=== PATIENT | male | born 1945 | race Caucasian/White ===

== ENCOUNTER 2018-06-26 08:59 | Inpatient (IN) ==
[2018-06-26] MEDS ORDERED: Heparin Drip 25,000 UNIT/250 ML BAG IV.CONT PRN (09:09)
--- NOTE | 2018-06-26 09:18 | ED ---
HPI General Chief Complaint: STEMI Alert Stated Complaint: chest pain Time Seen by Provider: 06/26/18 09:08 Source: patient Mode of arrival: ambulatory Limitations: no limitations History of Present Illness HPI narrative: Patient is a 72-year-old male with history of coronary artery disease, CABG, hypertension hyperlipidemia, he is a patient of Dr. Russell Mendoza, presents the emergency room with complaint of chest pain. Patient reports that 5 minutes prior to arrival to the emergency room, he began to have numbness to his elbows as well as his hands, reports that he has a light pain/ pressure to his chest. Patient reports that he does feel short of breath the symptoms with no diaphoresis or nausea or vomiting. Patient reports that his symptoms feel similar to when he was diagnosed with a heart attack in the past. Patient reports concerns that "I am having a heart attack." Patient reports that he last saw Dr. Mendoza 2 months ago in the office, reports that everything was fine at that time. MD complaint: Reports chest pain STEMI Alert: Yes Onset (ago): minute(s) Time: 09:00 Duration: constant Onset: during rest Pain location: Reports substernal Severity: similar to previous episodes Severity scale (1-10): 5 Quality: Reports aching Pain radiation: Reports RUE and LUE Relieving factors: nothing Exacerbating factors: nothing Context: Reports other Associated symptoms: Reports dyspnea Treatments prior to arrival chest pain: Reports aspirin Related Data Home Medications Medication Instructions Recorded Confirmed aspirin 81 mg PO DAILY 06/26/18 06/26/18 carvedilol [Coreg] 3.125 mg PO BID 06/26/18 06/26/18 prasugrel 10 mg PO DAILY 06/26/18 06/26/18 Allergies Allergy/AdvReac Type Severity Reaction Status Date / Time iodine Allergy Unknown Rash Verified 06/26/18 09:18 potassium iodide Allergy Unknown Rash Verified 06/26/18 09:18 povidone-iodine Allergy Unknown Rash Verified 06/26/18 09:18 sodium iodide Allergy Unknown Rash Verified 06/26/18 09:18 sodium iodide Allergy Unknown Rash Verified 06/26/18 09:18 Review of Systems ROS: all other systems reviewed are negative PMFSH History History Provided By: Patient Social History Social History Substance History: No History of Abuse Second Hand Smoke Exposure: Yes Smoking Status: Smoker, status unknown Tobacco Type: Cigarettes and Cigars How Often Do You Have a Drink Containing Alcohol: Never Recent Travel in [facility] within the Last 8 Weeks: No Recent Out of Country Travel within the Last 8 Weeks: No Exam Narrative Exam Narrative: GENERAL: moderate distress SKIN: Focused skin assessment warm/dry. HEAD: Atraumatic. Normocephalic. EYES: Pupils equal and round. No scleral icterus. No injection or drainage. ENT: No nasal bleeding or discharge. Mucous membranes pink and moist. NECK: Trachea midline. No JVD. CARDIOVASCULAR: Regular rate and rhythm. No murmur appreciated. RESPIRATORY: No accessory muscle use. Clear to auscultation. Breath sounds equal bilaterally. GASTROINTESTINAL: Abdomen soft, non-tender, nondistended. Hepatic and splenic margins not palpable. MUSCULOSKELETAL: No obvious deformities. No clubbing. No cyanosis. No edema. NEUROLOGICAL: Awake and alert. No obvious cranial nerve deficits. Motor grossly within normal limits. Normal speech. PSYCHIATRIC: Appropriate mood and affect; insight and judgment normal. Course Initial Documented Vital Signs Pulse Rate 83 06/26/18 09:10 Pulse Oximetry 95 06/26/18 09:10 Last Documented Vital Signs Temperature 98.1 F 06/26/18 09:14 Pulse Rate 74 06/26/18 09:20 Respiratory Rate 16 06/26/18 09:20 Blood Pressure 148/88 H 06/26/18 09:20 Pulse Oximetry 95 06/26/18 09:20 Medical Decision Making MDM Narrative Medical decision making narrative: During the course of the patients emergency department visit, the patients history, examination, and differential diagnosis were reviewed with the patient. The patient was placed on a monitoring engineer with oximetry and frequent blood pressure monitoring. The patient 2 large bore IV access's placed and blood work sent for analysis. The patient was initially provided 2 baby asa as he did take a baby asa prior to coming to the ER. He was started on a heparin drip. morphine given for pain relief A STEMI alert was called overhead - I did talk to patient's mop machine operator - Dr. Mendoza - accepts pt to [facility] for cardiac catherization. EMS are at bedside waiting to transport patient. Patient consents to treatment Medical Screen Exam Complete: Yes Emergency Medical Condition: Yes Differential Diagnosis Differential Diagnosis: STEMI Medical Records Medical records reviewed: Yes I reviewed the patient's medical records. Lab Data Result diagrams: 06/26/18 09:10 06/26/18 09:10 Lab Results 06/26/18 06/26/18 06/26/18 Range/Units 09:10 09:10 09:10 CBC w Diff Auto diff final WBC 9.6 (4.0-11.0) th/mm3 RBC 5.47 (4.50-5.90) mil/mm3 Hgb 15.6 (13.0-17.0) gm/dL POC Hgb (Calc) Hct 47.9 (39.0-51.0) % POC Hct MCV 87.6 (80.0-100.0) fL MCH 28.6 (27.0-34.0) pg MCHC 32.6 (32.0-36.0) % RDW 13.8 (11.6-17.2) % Plt Count 299 (150-450) th/mm3 MPV 8.1 (7.0-11.0) fL Neut % (Auto) 63.9 (16.0-70.0) % Lymph % (Auto) 24.7 (9.0-44.0) % Sargent % (Auto) 8.3 H (0.0-8.0) % Eos % (Auto) 1.4 (0.0-4.0) % Baso % (Auto) 1.7 (0.0-2.0) % Neut # (Auto) 6.1 (1.8-7.7) th/mm3 Lymph # (Auto) 2.4 (1.0-4.8) th/mm3 Sargent # (Auto) 0.8 (0.0-0.9) th/mm3 Eos # (Auto) 0.1 (0.0-0.4) th/mm3 Baso # (Auto) 0.2 (0.0-0.2) th/mm3 WBC Differential . Differential Comment . PT 10.2 (9.8-11.6) sec INR 1.0 Ratio APTT 27.8 (23.4-31.7) sec POC Sodium (137-144) mmol/L Sodium (136-145) meq/L POC Potassium (3.6-5.0) mmol/L Potassium (3.5-5.1) meq/L POC Chloride (102-111) mmol/L Chloride (98-107) meq/L Carbon Dioxide (21.0-32.0) meq/L Anion Gap (5-15) meq/L POC BUN (5-21) mg/dL BUN (7-18) mg/dL Creatinine (0.60-1.30) mg/dL POC Creatinine (0.6-1.3) mg/dL Estimated GFR (>89) mL/min POC Glucose (68-110) mg/dL Random Glucose (74-106) mg/dL Calcium (8.5-10.1) mg/dL Total Bilirubin (0.2-1.0) mg/dL AST (15-37) U/L ALT (12-78) U/L Alkaline Phosphatase (45-117) U/L Total Creatine Kinase (39-308) U/L Troponin I (0.02-0.05) ng/mL B-Natriuretic Peptide 58 (0-100) pg/mL Total Protein (6.4-8.2) g/dL Albumin (3.4-5.0) g/dL 06/26/18 Range/Units 09:10 CBC w Diff WBC (4.0-11.0) th/mm3 RBC (4.50-5.90) mil/mm3 Hgb (13.0-17.0) gm/dL POC Hgb (Calc) Not Reportable Hct (39.0-51.0) % POC Hct Not Reportable MCV (80.0-100.0) fL MCH (27.0-34.0) pg MCHC (32.0-36.0) % RDW (11.6-17.2) % Plt Count (150-450) th/mm3 MPV (7.0-11.0) fL Neut % (Auto) (16.0-70.0) % Lymph % (Auto) (9.0-44.0) % Sargent % (Auto) (0.0-8.0) % Eos % (Auto) (0.0-4.0) % Baso % (Auto) (0.0-2.0) % Neut # (Auto) (1.8-7.7) th/mm3 Lymph # (Auto) (1.0-4.8) th/mm3 Sargent # (Auto) (0.0-0.9) th/mm3 Eos # (Auto) (0.0-0.4) th/mm3 Baso # (Auto) (0.0-0.2) th/mm3 WBC Differential Differential Comment PT (9.8-11.6) sec INR Ratio APTT (23.4-31.7) sec POC Sodium 139 (137-144) mmol/L Sodium 141 (136-145) meq/L POC Potassium 4.2 (3.6-5.0) mmol/L Potassium 4.2 (3.5-5.1) meq/L POC Chloride 105 (102-111) mmol/L Chloride 108 H (98-107) meq/L Carbon Dioxide 20.9 L (21.0-32.0) meq/L Anion Gap 12 (5-15) meq/L POC BUN 16 (5-21) mg/dL BUN 16 (7-18) mg/dL Creatinine 1.20 (0.60-1.30) mg/dL POC Creatinine 1.1 (0.6-1.3) mg/dL Estimated GFR 60 L (>89) mL/min POC Glucose 144 H (68-110) mg/dL Random Glucose 147 H (74-106) mg/dL Calcium 8.5 (8.5-10.1) mg/dL Total Bilirubin 0.4 (0.2-1.0) mg/dL AST 18 (15-37) U/L ALT 23 (12-78) U/L Alkaline Phosphatase 107 (45-117) U/L Total Creatine Kinase 71 (39-308) U/L Troponin I Less than 0.02 L (0.02-0.05) ng/mL B-Natriuretic Peptide (0-100) pg/mL Total Protein 7.3 (6.4-8.2) g/dL Albumin 3.1 L (3.4-5.0) g/dL Imaging Data Radiologist's impression: Chest X-Ray 06/26/18 09:10 CONCLUSION: No acute cardiopulmonary disease. ECG Data EKG Prior to Arrival: No Attestation: I personally reviewed and interpreted this ECG as follows: Prior ECG tracings: available for review Interpretation: EKG at 0902: NSR at 74bpm, qt/qtc: 368/396, patient with st elevation II, III, aVF, v3-v6st seg depression in reciprical leads Discharge Plan Discharge Disposition Patient Disposition: 02 Transfer To [facility] [place] Discharge Condition Condition: Critical Discharge Details Diagnosis: ST elevation myocardial infarction (STEMI) Physicians Team ED Provider: Teresa Nava Primary Care Provider: UNKNOWN, Attending Provider: Christi Mendoza Other Providers: Earlene Torres Status ED Status: Discharged Discharge Information Discharge Date/Time: 06/26/18 09:20
[2018-06-26] MEDS ORDERED: Morphine Inj 4 MG/ML Vial IV.PUSH ONE (09:23)
--- NOTE | 2018-06-26 09:28 | XR ---
EXAM DATE: 06/26/2018 9:24 AM EST AGE/SEX: 72 years / Male INDICATIONS: Chest pain. CLINICAL DATA: This is the patient's initial encounter. Patient reports that signs and symptoms have been present for 1 day and indicates a pain score of 5/10. MEDICAL/SURGICAL HISTORY: Hypertension. CABG. Coronary artery stent. COMPARISON: [facility] [place], CHEST SINGLE AP, 10/30/2014. . FINDINGS: A single AP view of the chest demonstrates the lungs to be symmetrically aerated without evidence of mass, infiltrate or effusion. Status post CABG. The cardiomediastinal contours are unremarkable. Oss eous structures are intact. CONCLUSION: No acute cardiopulmonary disease. Electronically signed by: Tim Iglesias MD 06/26/2018 9:27 AM EST
[2018-06-26 09:30] LABS: Baso # (Auto) 0.2 th/mm3 (0.0-0.2); Baso % (Auto) 1.7 % (0.0-2.0); Eos # (Auto) 0.1 th/mm3 (0.0-0.4); Eos % (Auto) 1.4 % (0.0-4.0); Hematocrit 47.9 % (39.0-51.0); Hemoglobin 15.6 gm/dL (13.0-17.0); Lymph # (Auto) 2.4 th/mm3 (1.0-4.8); Lymph % (Auto) 24.7 % (9.0-44.0); Mean Corpuscular HGB Conc 32.6 % (32.0-36.0); Mean Corpuscular Hemoglobin 28.6 pg (27.0-34.0); Mean Corpuscular Volume 87.6 fL (80.0-100.0); Mean Platelet Volume 8.1 fL (7.0-11.0); Mono # (Auto) 0.8 th/mm3 (0.0-0.9); Mono % (Auto) 8.3 % (0.0-8.0); Neut # (Auto) 6.1 th/mm3 (1.8-7.7); Neut % (Auto) 63.9 % (16.0-70.0); Platelet Count 299 th/mm3 (150-450); Red Blood Count 5.47 mil/mm3 (4.50-5.90); Red Cell Distribution Width 13.8 % (11.6-17.2); White Blood Count 9.6 th/mm3 (4.0-11.0)
[2018-06-26 09:43] LABS: Activated Partial Thrombo Time 27.8 sec (23.4-31.7); Prothrombin Time 10.2 sec (9.8-11.6)
[2018-06-26 09:49] LABS: Calcium 8.5 mg/dL (8.5-10.1)
[2018-06-26 09:50] LABS: Albumin 3.1 g/dL (3.4-5.0); Blood Urea Nitrogen 16 mg/dL (7-18); Carbon Dioxide 20.9 meq/L (21.0-32.0); Glucose,Random 147 mg/dL (74-106)
[2018-06-26 09:53] LABS: Alanine Aminotransferase 23 U/L (12-78); Aspartate Aminotransferase 18 U/L (15-37); Glomerular Filtration Rate 60 mL/min (>89)
[2018-06-26 09:55] LABS: Anion Gap 12 meq/L (5-15); Chloride 108 meq/L (98-107); Potassium 4.2 meq/L (3.5-5.1); Sodium 141 meq/L (136-145); Total Protein 7.3 g/dL (6.4-8.2)
[2018-06-26 09:56] LABS: Alkaline Phosphatase 107 U/L (45-117)
[2018-06-26] MEDS ORDERED: Hydrocortisone Sod Succinate 100 MG Vial ONE (10:02)
[2018-06-26 10:03] LABS: Creatine Kinase 71 U/L (39-308)
[2018-06-26] MEDS ORDERED: fentaNYL Citrate Inj 100 MCG/2 ML Ampul ONE (10:03)
[2018-06-26] MEDS ORDERED: Heparin 10,000 UNITS/10 ML Vial (for IV use) ONE (10:31)
[2018-06-26] MEDS ORDERED: Tirofiban Inj 12,500 MCG/250 ML PLAST..BAG ONE (10:49)
[2018-06-26] MEDS: Tirofiban Inj 12,500 MCG/250 ML PLAST..BAG IV.CONT SCH ×2 (10:59→22:51)
[2018-06-26] MEDS ORDERED: TIROFIBAN BOLUS IV.SIG ONE (11:09)
[2018-06-26] MEDS ORDERED: Misc Info for Pharmacy OTHER STA (11:09)
[2018-06-26] MEDS ORDERED: Famotidine PF Inj 20 MG/2 ML Vial ONE (11:13)
--- NOTE | 2018-06-26 11:13 | CATHPROC ---
[facility] HIS Report Study Information Study Number Admission Scheduled Start Study Start [id number] Jun 26 2018 8:59AM 06/26/2018 Jun 26 2018 9:34AM [place] Service Cardiac Pacer/ICD Admit Source Facility Department Transfer in from another acute care facility [facility] - Collision Repairer Physician and Clinical Staff Initial Russell Green Traffic Analyst Joseph Sawyer,WILLIAN Traffic Analyst Kash Carrero,WILLIAN Recorder Kathy Toussaint,RT(R) (BS) Scrub Jeanette Acevedo ,RT(R) Procedures Performed Procedure Location (Site) Vessel Name Coronary Angiograms LCA Left Coronary Coronary Angiograms SAMPSON-LAD Left Coronary Coronary Angiograms SVG-DIAG Left Coronary Coronary Angiograms SVG-LCX CIRC Coronary Angiograms SVG-RCA Right Coronary L Heart Cath LV Gram-hand inj. LV LV Ventricle PTCA SVG-LCX CIRC PTCA SVG-OM CIRC Wire insertion Fem Art (right) Femoral Art Equipment Time Commercial Leasing Agent Description Size Mfg Part Number Used/Scraped [id number] 10:36 [employer] WIRE, [employer] PROWATER 180CM 180CM Used *[id number] TRANSDUCER, TRUWAVE [id number] 10:03 PEÑA NEGRON * Used W/STOCKCOCK *[id number] 10:44 [employer] BALLOON, 4.0 20MM EMERGE MR 4.0 20MM Used *[id number] [id number] *[id number] *[id number] *[id number] *[id number] 10:03 [employer] [place] BLANKET,WARM AIR CCL * Used *[id number] 10:03 [employer] [place] PACK, CCL CUSTOM * Used *[id number] 10:03 [place] PACER PEN, SKIN DUAL W/ RULER * Used *[id number] 10:42 [employer] BALLOON, 2.5 X 20MM EUPHORA 20MM Used *[id number] BALLOON, 4.0 X 27MM NC [id number] 10:53 [employer] 27MM Used EUPHORA *[id number] 10:45 [employer] 30 EDI INDEFLATOR Used *[id number] 10:12 [employer] SHEATH, FR6.5 PRELUDE 11CM FR 6.5 038ACT Used *[id number] 10:03 [employer] WIRE, 3MMJ .035 180CM 180CM Used *[id number] 10:03 NAMIC MANIFOLD, 4 PORT * Used *[id number] 10:03 [employer] OMNIPAQUE, 350 MG, 150ML 150ML [id number] Used [id number] 10:03 [employer] SHEATH, FR4 TERUMO (10CM) FR 4 Used *[id number] History: Current Medications Medication Dosage/Unit Route Frequency Last Date/Time Taken HEPARIN ASA CARVEDILOL EFFIENT History: Allergies Allergy Reaction potassium iodide Rash sodium iodide Rash iodine Rash povidone-iodine Rash History: Risk Factors Family History of Hypertension Dyslipidemia Previous [place] Previous Heart Failure Premature CAD Yes Yes No No No Prior Valve Prior PCI Prior PCIDate Prior CABG Surgery No Yes 05/22/2015 Yes Cerebrovascular Peripheral Artery Chronic Lung On Dialysis Diabetes Disease Disease Disease No No No No No History: Symptoms/Diagnosis Selection Items Chest pain History: Stress Tests Stress or Imaging Studies Performed No History: Other Current Smoker Yes Medication Medication Total Dose (Bolus/Oral) Medication Total Dosage/Unit 1% XYLOCAINE 20 mL AGGRASTAT BOLUS 46 mL BENADRYL 50 mg EFFIENT 60 mg FENTANYL 25 mcg HEPARIN 6400 units PEPCID 20 mg SOLU-CORTEF 100 mg VERSED 1 mg Medications (Bolus/Oral) Medication Time Given Dosage/Unit Administered By Reason PEPCID 06/26/2018 10:09:22 AM 20 mg Joseph Sawyer 20 mg PEPCID given in lab by Joseph Sawyer RN in Right Antecubital via Peripheral IV. SOLU-CORTEF 06/26/2018 10:10:45 AM 100 mg Joseph Sawyer 100 mg SOLU-CORTEF given in lab by Joseph Sawyer RN via Peripheral IV. BENADRYL 06/26/2018 10:11:22 AM 50 mg Joseph Sawyer 50 mg BENADRYL given in lab by Joseph Sawyer, WILLIAN via Peripheral IV. 1% XYLOCAINE 06/26/2018 10:19:00 AM 20 mL Russell Mendoza 20 mL 1% XYLOCAINE given in lab by Russell Mendoza in Right Groin via Subcutaneous. VERSED 06/26/2018 10:19:52 AM 1 mg Joseph Sawyer 1 mg VERSED given in lab by Joseph Sawyer RN via Peripheral IV. FENTANYL 06/26/2018 10:20:56 AM 25 mcg Joseph Sawyer 25 mcg FENTANYL given in lab by Joseph Sawyer RN via Peripheral IV. HEPARIN 06/26/2018 10:36:06 AM 6400 units Kash Carrero 6400 units HEPARIN given in lab by Kash Carrero RN via Peripheral IV. AGGRASTAT BOLUS 06/26/2018 10:54:44 AM 46 mL Kash Carrero 46 mL AGGRASTAT BOLUS given in lab by Kash Carrero RN via Peripheral IV. EFFIENT 06/26/2018 11:04:48 AM 60 mg Kash Carrero 60 mg EFFIENT given in lab by Kash Carrero RN via Oral. Medication (Drip) Medication Time Given Dosage/Unit Concentration/Unit Diluent (ml) Soluti on AGGRASTAT DRIP 06/26/2018 10:58:39 AM 0.155 mcg/kg/min 12.5 mg 250 NaCl .9 0.155 mcg/kg/min AGGRASTAT DRIP given in lab by Kash Carrero RN via Peripheral IV. Pump/Drip Flow = 16.5 ml/hr using NaCl .9 with a concentration of 12.5 mg in 250 ml. IV Solutions 06/26/2018 9:54:19 AM 0 mL (IV) 500 NaCl .9 IV Solutions given in lab by Joseph Sawyer RN in Left Forearm via Peripheral IV. Pump/Drip Flow = 3 0 ml/hr using NaCl .9. NIPRIDE 06/26/2018 10:51:01 AM 100 mcg 100 mcg NIPRIDE given in lab by Jeanette Acevedo RT(R) via Intra-coronary. NIPRIDE 06/26/2018 10:51:41 AM 100 mcg 100 mcg NIPRIDE given in lab by Jeanette Acevedo RT(R) via Intra-coronary. Chronological Log Time Study Chronological Log 9:53:49 Patient arrived via Bed. 9:53:50 Patient Name, D.O.B, / Armband Verified By R.N. 9:53:51 Consent signed by the physician and the patient and verified by the Collision Repairer staff. 9:53:52 Pre-op and post- op instructions given; patient acknowledges understanding of instructions . 9:53:59 Presedation assessment performed by Collision Repairer RN. 9:54:09 Patient Warmer Placed on the Table. 9:54:10 Alexy Prominences Protected 9:54:12 A # 20 IV was noted in the Antecubital (right). Grade = 0 9:54:14 A # 18 IV was noted in the Forearm (left). Grade = 0 IV Solutions given in lab by Joseph Sawyer, WILLIAN in Left Forearm via Peripheral IV. Pump/Drip Fl ow = 30 ml/hr using NaCl 9:54:19 .9. 9:54:21 History and physical on the chart or being dictated. Vitals capture started with the following parameters, Patient=Adult, Interval=5 min, Initial Pr zbobuk=793 mmHg, 9:57:00 Deflation Rate=5 mmHg, Cuff placed on Left Arm 9:57:36 HR=97 bpm, GELT=056/92 mmhg, SpO2=97.0 %, Resp=19 B/min, Pain=0, Rere=10, Curtis=2 9:59:06 MD paged 9:59:36 MD responded 10:02:39 HR=73 bpm, GPJN=947/81 mmhg, SpO2=94.0 %, Resp=15 B/min, Pain=0, Rere=10, Crutis=2 10:03:31 Reference ECG taken 10:05:22 Pressure channel 1 zeroed. 10:07:36 HR=71 bpm, BZMG=093/79 mmhg, SpO2=95.0 %, Resp=16 B/min, Pain=0, Rere=10, Curtis=2 10:09:22 20 mg PEPCID given in lab by Joseph Sawyer, WILLIAN in Right Antecubital via Peripheral IV. 10:10:45 100 mg SOLU-CORTEF given in lab by Joseph Sawyer, WILLIAN via Peripheral IV. 10:11:22 50 mg BENADRYL given in lab by Joseph Sawyer, WILLIAN via Peripheral IV. 10:12:35 HR=67 bpm, YIBP=208/91 mmhg, SpO2=95.0 %, Resp=8 B/min, Pain=0, Rere=10, Curtis=2 10:16:19 MD arrived 10:17:38 HR=68 bpm, LRDO=972/86 mmhg, SpO2=94.0 %, Resp=12 B/min, Pain=0, Rere=10, Curtis=2 Time Out. Correct patient, correct procedure, correct physician, labs, allergies, and equipment verified with medical laboratory technical officer 10:18:52 team present. Fire risk assesment completed (see hard stop sheet for coding). Time Out Conc urred by MD and individual staff in procedure. 10:18:57 Case Start 10:19:00 20 mL 1% XYLOCAINE given in lab by Russell Mendoza in Right Groin via Subcutaneous. 10::52 1 mg VERSED given in lab by Joseph Sawyer, RN via Peripheral IV. 10:20:11 Access site was Right Femoral Artery. 10:20:23 A SHEATH, FR6.5 PRELUDE 11CM FR 6.5 was advanced into the Fem Art (right) using the Percuta neous technique. A JR 4.0 GUIDE CATHETER FR 6 was advanced over a wire. OMNIPAQUE, 350 MG, 150ML 150ML was used for 10:20:48 injections. 10:20:56 25 mcg FENTANYL given in lab by Joseph Sawyer, RN via Peripheral IV. 10:22:39 HR=82 bpm, GWAK=778/90 mmhg, SpO2=95.0 %, Resp=19 B/min, Pain=0, Rere=10, Curtis=2 10:23:08 The SVG-RCA was injected and visualized at various angles. OMNIPAQUE, 350 MG, 150ML 150ML u sed. 10:23:28 Catheter was removed A JL 4.0 INFINITI CATHETER FR 4 was advanced over a wire. OMNIPAQUE, 350 MG, 150ML 150ML was us ed for 10:23:36 injections. 10:25:17 The LCA was injected and visualized at various angles. OMNIPAQUE, 350 MG, 150ML 150ML used . After removing the current catheter a JR 4.0 INFINITI CATHETER FR 4 was advanced over a WIRE, 3 MMJ .035 180CM 10:26:11 180CM. 10:27:38 HR=84 bpm, IJGG=235/87 mmhg, SpO2=93.0 %, Resp=20 B/min, Pain=0, Rere=10, Curtis=2 Recorded Pressure: LV, HR=72, Condition=Condition 1 10:27:48 (Left Ventricle) LV 146/5/14 Recorded Pressure: LV, Ao, HR=71, Condition=Condition 1 10:28:15 (Left Ventricle) LV 152/5/13, (Aorta) Ao 144/67/99 10:28:22 The LV was manually injected with 8 cc's and visualized. OMNIPAQUE, 350 MG, 150ML 150ML use d. 10:28:56 The SVG-LCX was injected and visualized at various angles. OMNIPAQUE, 350 MG, 150ML 150ML u sed. 10:29:29 The SVG-DIAG was injected and visualized at various angles. OMNIPAQUE, 350 MG, 150ML 150ML used. 10:32:39 HR=71 bpm, CPOS=383/85 mmhg, SpO2=95.0 %, Resp=9 B/min, Pain=0, Rere=10, Curtis=2 10:32:47 The SAMPSON-LAD was injected and visualized at various angles. OMNIPAQUE, 350 MG, 150ML 150ML used. 10:33:12 Activated Clotting Time Drawn 10:35:11 ACT (Normal Range 90-180) = 73 A JR 4.0 GUIDE CATHETER FR 6 was advanced over a wire. OMNIPAQUE, 350 MG, 150ML 150ML was used for 10:35:24 injections. 10:35:44 A WIRE, ASAHI PROWATER 180CM 180CM was inserted via Fem Art (right). 10:36:06 6400 units HEPARIN given in lab by Kash Carrero, RN via Peripheral IV. 10:37:09 Wire removed 10:37:40 HR=68 bpm, BUCF=019/82 mmhg, SpO2=93.0 %, Resp=25 B/min, Pain=0, Rere=10, Curtis=2 After removing the current catheter a LCB GUIDE CATHETER FR 6 was advanced over a WIRE, 3MMJ .0 35 180CM 10:37:59 180CM. 10:41:04 Interventional wire has crossed the lesion A BALLOON, 2.5 X 20MM EUPHORA 20MM was inserted over WIRE, ASAHI PROWATER 180CM 180CM via the F em Art 10:41:47 (right). 10:42:41 HR=68 bpm, QTPY=789/78 mmhg, SpO2=95.0 %, Resp=22 B/min, Pain=0, Rere=10, Curtis=2 10:43:22 Balloon Removed A BALLOON, 4.0 20MM EMERGE MR 4.0 20MM was inserted over WIRE, ASAHI PROWATER 180CM 180CM via t he Fem 10:44:35 Art (right). A BALLOON, 4.0 20MM EMERGE MR 4.0 20MM over a WIRE, ASAHI PROWATER 180CM 180CM in the SV-OM wa s 10:44:42 inflated using a 30 EDI INDEFLATOR at 7 edi for 9 sec. A BALLOON, 4.0 20MM EMERGE MR 4.0 20MM over a WIRE, ASAHI PROWATER 180CM 180CM in the SV-OM wa s 10:44:54 inflated using a 30 EDI INDEFLATOR at 8 edi for 12 sec. A BALLOON, 4.0 20MM EMERGE MR 4.0 20MM over a WIRE, ASAHI PROWATER 180CM 180CM in the SVG-OM wa s 10:45:44 inflated using a 30 EDI INDEFLATOR at 8 edi for 14 sec. A BALLOON, 4.0 20MM EMERGE MR 4.0 20MM over a WIRE, ASAHI PROWATER 180CM 180CM in the SV-OM wa s 10:46:17 inflated using a 30 EDI INDEFLATOR at 4 edi for 12 sec. A BALLOON, 4.0 20MM EMERGE MR 4.0 20MM over a WIRE, ASAHI PROWATER 180CM 180CM in the SVG-OM wa s 10:46:39 inflated using a 30 EDI INDEFLATOR at 5 edi for 14 sec. A BALLOON, 4.0 20MM EMERGE MR 4.0 20MM over a WIRE, ASAHI PROWATER 180CM 180CM in the SVG-LCX w as 10:46:53 inflated using a 30 EDI INDEFLATOR at 5 edi for 14 sec. 10:47:45 HR=62 bpm, LRIP=674/81 mmhg, SpO2=95.0 %, Resp=19 B/min, Pain=0, Rere=10, Curtis=2 A BALLOON, 4.0 20MM EMERGE MR 4.0 20MM over a WIRE, ASAHI PROWATER 180CM 180CM in the SVG-LCX w as 10:48:13 inflated using a 30 EDI INDEFLATOR at 4 edi for 10 sec. 10:48:52 Balloon Removed 10:51:01 100 mcg NIPRIDE given in lab by Jeanette Acevedo RT(R) via Intra-coronary. 10:51:41 100 mcg NIPRIDE given in lab by Jeanette Acevedo RT(R) via Intra-coronary. 10:52:44 HR=77 bpm, PSYX=429/61 mmhg, SpO2=95.0 %, Resp=21 B/min, Pain=0, Rere=10, Curtis=2 A BALLOON, 4.0 X 27MM NC EUPHORA 27MM was inserted over WIRE, ASAHI PROWATER 180CM 180CM via th e Fem 10:52:48 Art (right). A BALLOON, 4.0 X 27MM NC EUPHORA 27MM over a WIRE, ASAHI PROWATER 180CM 180CM in the SVG-LCX wa s 10:54:42 inflated using a 30 EDI INDEFLATOR at 9 edi for 12 sec. 10:54:44 46 mL AGGRASTAT BOLUS given in lab by Kash Carrero RN via Peripheral IV. A BALLOON, 4.0 X 27MM NC EUPHORA 27MM over a WIRE, ASAHI PROWATER 180CM 180CM in the SVG-LCX wa s 10:55:12 inflated using a 30 EDI INDEFLATOR at 12 edi for 13 sec. 10:55:50 Balloon Removed 10:55:57 Wire removed 10:56:01 Catheter was removed 10:56:11 Case End (Physician broke scrub) 10:58:11 HR=63 bpm, DKMJ=642/80 mmhg, SpO2=97.0 %, Resp=17 B/min, Pain=0, Rere=10, Curtis=2 0.155 mcg/kg/min AGGRASTAT DRIP given in lab by Kash Carrero RN via Peripheral IV. Pump/Drip Flow = 16.5 ml/hr 10:58:39 using NaCl .9 with a concentration of 12.5 mg in 250 ml. 10:59:30 Activated Clotting Time Drawn 10:59:40 Catheter(s) removed without difficulty 10:59:41 In the Fem Art (right) the SHEATH, FR6.5 PRELUDE 11CM FR 6.[address] by Jeanette Sauceda RT(R) . 10:59:51 No case complications noted. 10:59:57 Holding Area notified of successful intervention. 10:59:58 Bedside Report will be given. 11:00:10 A Left Heart Cath was performed. 11:02:42 HR=66 bpm, LZUQ=960/83 mmhg, SpO2=98.0 %, Resp=8 B/min, Pain=0, Rere=10, Curtis=2 11:03:18 Sterile dressing applied to site 11:04:48 60 mg EFFIENT given in lab by Kash Carrero, RN via Oral. 11:06:17 ACT (Normal Range 90-180) = 234 11:07:30 Patient moved to [facility] End Study - Contrast Media Used In Study Contrast Total Opened (mL) Total Used (mL) Total Wasted (mL) Omnipaque 150 150 0 End Study - Radiation Exposure Fluoro Time (minutes) 13.6 End Study - Patient Disposition Complications Transferred To Interventional Outcome No Telemetry Bed successful
[2018-06-26] MEDS ORDERED: Heparin/NS PF Inj 1,500 ML ONE (11:14)
--- NOTE | 2018-06-26 11:40 | P.PNIM ---
Subjective Interval history: f/u; ACS had cardiac cath earlier. no chest pain or sob. looks and feels comfortable. Physical Exam Vital signs: Vital Signs 06/26/18 09:10 06/26/18 09:14 06/26/18 09:20 Temperature 98.1 F Pulse Rate 83 83 74 Respiratory Rate 16 16 Blood Pressure 155/87 H 148/88 H Pulse Oximetry 95 95 95 Intake & Output 06/25/18 06/26/18 06/26/18 18:59 06:59 18:59 Intake Total 5 / 5 Balance 5 / 5 Weight 90.8 kg Intake: IV 5 / 5 Heparin/NS PF Inj 1,500 ML @ 0 5 / 5 mls/hr .ROUTE .[facility] Rx#: [id number] - Constitutional no acute distress - Routine Respiratory Exam Present: CTA bilaterally - Routine Cardiovascular Exam Present: RRR - Routine Abdominal Exam Present: soft - Routine Extremities Exam Comments: no pedal edema. - Routine Neurological Exam Present: alert, oriented X3 Results - Labs CBC & Chem 7: 06/26/18 09:10 06/26/18 09:10 Laboratory Results - last 24 hr 06/26/18 06/26/18 06/26/18 09:10 09:10 09:10 CBC w Diff Auto diff final WBC 9.6 RBC 5.47 Hgb 15.6 POC Hgb (Calc) Hct 47.9 POC Hct MCV 87.6 MCH 28.6 MCHC 32.6 RDW 13.8 Plt Count 299 MPV 8.1 Neut % (Auto) 63.9 Lymph % (Auto) 24.7 [place] % (Auto) 8.3 H Eos % (Auto) 1.4 Baso % (Auto) 1.7 Neut # (Auto) 6.1 Lymph # (Auto) 2.4 [place] # (Auto) 0.8 Eos # (Auto) 0.1 Baso # (Auto) 0.2 WBC Differential . Differential Comment . PT 10.2 INR 1.0 APTT 27.8 POC Sodium Sodium POC Potassium Potassium POC Chloride Chloride Carbon Dioxide Anion Gap POC BUN BUN Creatinine POC Creatinine Estimated GFR POC Glucose Random Glucose Calcium Total Bilirubin AST ALT Alkaline Phosphatase Total Creatine Kinase Troponin I B-Natriuretic Peptide 58 Total Protein Albumin 06/26/18 09:10 CBC w Diff WBC RBC Hgb POC Hgb (Calc) Not Reportable Hct POC Hct Not Reportable MCV MCH MCHC RDW Plt Count MPV Neut % (Auto) Lymph % (Auto) [place] % (Auto) Eos % (Auto) Baso % (Auto) Neut # (Auto) Lymph # (Auto) [place] # (Auto) Eos # (Auto) Baso # (Auto) WBC Differential Differential Comment PT INR APTT POC Sodium 139 Sodium 141 POC Potassium 4.2 Potassium 4.2 POC Chloride 105 Chloride 108 H Carbon Dioxide 20.9 L Anion Gap 12 POC BUN 16 BUN 16 Creatinine 1.20 POC Creatinine 1.1 Estimated GFR 60 L POC Glucose 144 H Random Glucose 147 H Calcium 8.5 Total Bilirubin 0.4 AST 18 ALT 23 Alkaline Phosphatase 107 Total Creatine Kinase 71 Troponin I Less than 0.02 L B-Natriuretic Peptide Total Protein 7.3 Albumin 3.1 L - Imaging Impressions Chest X-Ray 06/26/18 09:10 CONCLUSION: No acute cardiopulmonary disease. Assessment and Plan - Plan A/P - STEMI with history of CAD/ CABG and hypertension s/p cardiac cath continue with aspirin and Effient- cardiology following. -dyslipidemia; check the lipid panel. Discussed Condition With: the patient.
--- NOTE | 2018-06-26 11:58 | MB ---
cc: Russell Mendoza MD DATE: 06/26/2018 HISTORY OF PRESENT ILLNESS: Julian is a very pleasant 72-year-old gentleman with history of coronary artery disease, status post CABG, cardiomyopathy, status post abdominal aortic aneurysm repair, noncompliance, multiple stent thromboses of the vein graft to OM, continued tobacco use. He has been noncompliant with his Effient for the past 3-4 days prior to admission. He is still smoking. He developed chest pain approximately an hour prior to arrival to the ER in [place], found to have ST elevation in the inferolateral leads. STEMI was called. The patient has been transferred emergently to the [facility] laboratory technician. Currently, he is having chest pain. Denies fever, chills, cough. CHIEF COMPLAINT: Per history of present illness. PAST MEDICAL HISTORY: Per history of present illness. He also has a history of left hip replacement, hypertension, hyperlipidemia. ALLERGIES: IODINE, POTASSIUM IODIDE, POVIDONE IODINE, SODIUM IODIDE. MEDICATIONS: Heparin drip with no bolus and aspirin given in the ER. PHYSICAL EXAMINATION: VITAL SIGNS: Pulse 74, blood pressure 148/88, respiratory rate 16, temperature 98.1. He is saturating 95% on room air. GENERAL: He is alert and oriented x3, in no distress. NECK: Supple. No JVD. No bruits. CARDIOVASCULAR: S1, S2. No murmurs, rubs or gallops. LUNGS: bilaterally. ABDOMEN: Soft, nontender, nondistended with positive bowel sounds. EXTREMITIES: Lower extremity edema. LABORATORY DATA: White count 9.6, hemoglobin 15.6, hematocrit 47.9, platelet count 299. INR 1.0. Sodium 139, potassium 4.2, chloride 108, BUN 15, creatinine 1.20, glucose 147. Troponin less than 0.02. BNP 58. LFTs normal. EKG shows ST elevation in the inferolateral leads, sinus rhythm. ASSESSMENT: 1. ST-elevation myocardial infarction. 2. Coronary artery disease. 3. Cardiomyopathy. 4. Noncompliance. 5. Tobacco abuse. STEMI alert has been called. PLAN: Emergent left heart catheterization and primary PCI of the culprit vessel. The patient has been strongly advised to stop smoking by myself personally. MD TERRA Moe/se/jessa , 11:09 AM , 11:16 AM
[2018-06-26] MEDS ORDERED: Iohexol 350 MG/ML 50 ML Vial (for Cath Lab) IVCONTRAST ONE (12:10)
[2018-06-26] MEDS ORDERED: Iohexol 350 MG/ML 100 ML Vial (for Cath Lab) IVCONTRAST ONE (12:10)
--- NOTE | 2018-06-26 12:13 | P.CONIM ---
History of Present Illness Reason for Consult: STEMI Primary Care Provider: UNKNOWN Chief Complaint: chest pain History of Present Illness: patient is a 72 y/o male with history of CAD- s/p CABG, hypertension and dyslipidemia who presented to ER with chest pain. he says that the pain started thsi morning when he was going to work. pain was midsternal with some radiation to the right elbow. it was associated with nausea and diaphoresis. pain lasted for about twenty minutes. he was found to have STEMI for which he underwent emergent cardiac catheterization. he was resting comfortably with no chest pain or sob at the time of my evaluation. Review of Systems All other systems reviewed negative except as stated in HPI PMFSH - History History Provided By: Patient - Medical History Medical History: Medical History (Last Reviewed 06/26/18 @ 12:12 by Earlene Torres MD) HTN (hypertension) Hyperlipidemia - Surgical History Surgical History: Surgical History (Last Reviewed 06/26/18 @ 12:12 by Earlene Torres MD) H/O heart artery stent History of left hip replacement S/P CABG x 4 - Family History Family History: Family History (Last Updated 06/27/18 @ 07:34 by Earlene Torres MD) Other No pertinent family history - Tobacco History Second Hand Smoke Exposure: Yes Tobacco Use In Past 30 Days: Yes Smoking Status: Smoker, status unknown Tobacco Type: Cigarettes, Cigars - Alcohol History How Often Do You Have a Drink Containing Alcohol: Never - Substance Use History Substance History: No History of Abuse - Travel History Recent Travel in the [place] Within the Last 8 Weeks: No Recent Travel Out of the Country Within the Last 8 Weeks: No - Immunization History Tetanus Immunization: <5 Years Medications and Allergies Active Medications: Active Medications Aspirin (Aspirin Chew) 162 mg PO DAILY CHAPARRO Heparin Sodium/Dextrose (Heparin/D5w 25,000 U/250 Ml) 25,000 unit in 250 mls @ 0 mls/hr IV.CONT TITRATE PRN; Protocol PRN Reason: Per Protocol Last Admin: 06/26/18 09:28 Dose: 1,000 units/hr, 10 mls/hr Tirofiban/Sodium Chloride 2, 275 mcg/ Miscellaneous Medication 45.5 mls @ 546 mls/hr IV.SIG ONCE ONE Stop: 06/26/18 11:10 Tirofiban/Sodium Chloride (Aggrastat Inj) 12,500 mcg in 250 mls @ 0 mls/hr IV.CONT .Q0M CHAPARRO; Protocol Prasugrel (Effient) 10 mg PO DAILY [place] Sodium Chloride (Ns Flush) 2 ml IV.FLUSH UNSCH PRN PRN Reason: FLUSH AFTER USING IV ACCESS Sodium Chloride (Ns Flush) 2 ml IV.FLUSH BID CHAPARRO Sodium Chloride (Ns Flush) 2 ml IV.FLUSH PRN PRN PRN Reason: FLUSH AFTER USING IV ACCESS Allergies Allergy/AdvReac Type Severity Reaction Status Date / Time iodine Allergy Unknown Rash Verified 06/26/18 09:18 potassium iodide Allergy Unknown Rash Verified 06/26/18 09:18 povidone-iodine Allergy Unknown Rash Verified 06/26/18 09:18 sodium iodide Allergy Unknown Rash Verified 06/26/18 09:18 sodium iodide Allergy Unknown Rash Verified 06/26/18 09:18 Home Medications Medication Instructions Recorded Confirmed Type aspirin 81 mg PO DAILY 06/26/18 06/26/18 History carvedilol [Coreg] 3.125 mg PO BID 06/26/18 06/26/18 History prasugrel 10 mg PO DAILY 06/26/18 06/26/18 History Exam Vital signs: Vital Signs 06/26/18 09:10 06/26/18 09:14 06/26/18 09:20 Temperature 98.1 F Pulse Rate 83 83 74 Respiratory Rate 16 16 Blood Pressure 155/87 H 148/88 H Pulse Oximetry 95 95 95 Intake & Output 06/25/18 06/26/18 06/26/18 18:59 06:59 18:59 Intake Total 5 / 5 Balance 5 / 5 Weight 90.8 kg Intake: IV 5 / 5 Heparin/NS PF Inj 1,500 ML @ 0 5 / 5 mls/hr .ROUTE [facility] Rx#: [id number] - Constitutional no acute distress - Routine HEENT Exam Eye: Present: PERRL - Routine Neck Exam Present: supple - Routine Respiratory Exam Present: CTA bilaterally - Routine Cardiovascular Exam Present: RRR - Routine Abdominal Exam Present: soft - Routine Extremities Exam Comments: no pedal edema. - Routine Neurological Exam Present: alert, oriented X3 Results - Labs CBC & Chem 7: 06/27/18 03:43 06/27/18 03:43 Labs: Laboratory Results - last 24 hr 06/26/18 06/26/18 06/26/18 09:10 09:10 09:10 CBC w Diff Auto diff final WBC 9.6 RBC 5.47 Hgb 15.6 POC Hgb (Calc) Hct 47.9 POC Hct MCV 87.6 MCH 28.6 MCHC 32.6 RDW 13.8 Plt Count 299 MPV 8.1 Neut % (Auto) 63.9 Lymph % (Auto) 24.7 [place] % (Auto) 8.3 H Eos % (Auto) 1.4 Baso % (Auto) 1.7 Neut # (Auto) 6.1 Lymph # (Auto) 2.4 [place] # (Auto) 0.8 Eos # (Auto) 0.1 Baso # (Auto) 0.2 WBC Differential . Differential Comment . PT 10.2 INR 1.0 APTT 27.8 POC Sodium Sodium POC Potassium Potassium POC Chloride Chloride Carbon Dioxide Anion Gap POC BUN BUN Creatinine POC Creatinine Estimated GFR POC Glucose Random Glucose Calcium Total Bilirubin AST ALT Alkaline Phosphatase Total Creatine Kinase Troponin I B-Natriuretic Peptide 58 Total Protein Albumin 06/26/18 09:10 CBC w Diff WBC RBC Hgb POC Hgb (Calc) Not Reportable Hct POC Hct Not Reportable MCV MCH MCHC RDW Plt Count MPV Neut % (Auto) Lymph % (Auto) [place] % (Auto) Eos % (Auto) Baso % (Auto) Neut # (Auto) Lymph # (Auto) [place] # (Auto) Eos # (Auto) Baso # (Auto) WBC Differential Differential Comment PT INR APTT POC Sodium 139 Sodium 141 POC Potassium 4.2 Potassium 4.2 POC Chloride 105 Chloride 108 H Carbon Dioxide 20.9 L Anion Gap 12 POC BUN 16 BUN 16 Creatinine 1.20 POC Creatinine 1.1 Estimated GFR 60 L POC Glucose 144 H Random Glucose 147 H Calcium 8.5 Total Bilirubin 0.4 AST 18 ALT 23 Alkaline Phosphatase 107 Total Creatine Kinase 71 Troponin I Less than 0.02 L B-Natriuretic Peptide Total Protein 7.3 Albumin 3.1 L - Imaging Impressions Chest X-Ray 06/26/18 09:10 CONCLUSION: No acute cardiopulmonary disease. Assessment and Plan - Plan A/P - STEMI with history of CAD/ CABG and hypertension s/p cardiac cath continue with aspirin and Effient- will resume BB soon. cardiology following. -dyslipidemia; check the lipid panel. Thank you for the consult. Discussed Condition With: the patient. Discharge Planning: when cleared by cardiology.
--- NOTE | 2018-06-26 12:49 | MR ---
cc: Russell Mendoza MD DATE: 06/26/2018 PROCEDURE: Left heart catheterization, left ventriculography, coronary angiography, saphenous vein angiography, left internal mammary artery angiography, percutaneous transluminal coronary angiography of the saphenous vein graft to the obtuse marginal. INDICATIONS FOR PROCEDURE: STEMI, coronary artery disease, cardiomyopathy. The patient was brought to the cardiac catheterization laboratory, prepped and draped in the usual sterile fashion; 10 mL of 1% lidocaine was used to locally anesthetize the right common femoral artery. A 6-Nepalese sheath was placed in right common femoral artery. A 4-Nepalese JR4 and 6-Nepalese JR4 guide and 4-Nepalese JL4 diagnostic catheters were used to perform left ventriculography, coronary angiography, saphenous vein angiography, and SAMPSON angiography with the following findings: The LV pressure is 150/5-10, EF 35%. The posterior wall is severely hypokinetic to akinetic. Right coronary artery is known to be occluded. Imaged the vein graft to distal right coronary artery, is widely patent. There is relative stenosis in the proximal segment up to 50% angiographically. Flow is KRISTEN 3. There is no significant obstructive disease in the [place] right PDA or right KARI. The distal left main coronary artery has 70% disease in the distal segment. LAD is occluded at the first diagonal artery. Left circumflex vessel has an ostial 60% stenosis. First obtuse marginal vessel is a small vessel, 60-70% disease in the proximal segment. Reference vessel diameter 2.0 mm. Second obtuse marginal vessel also a small vessel, reference vessel diameter 2.0 mm, moderate diffuse disease in the proximal segment up to 50% angiographically. Third obtuse marginal vessel is occluded in the proximal segment. The remainder of the AV groove, left circumflex vessel has no significant disease angiographically. The vein graft to obtuse marginal vessel is occluded in the proximal segment with stent thrombosis. The vein graft to the diagonal vessel is widely patent. There is retrograde filling to 2 more medial vein grafts and a septal branch. The more medial graft, which is the more lateral of the two, has a proximal 70% stenosis. Reference vessel diameter 2.25 mm. Initially, CT 273, additional 70 units per kilogram of heparin was given. ACT pending at the time of dictation. A 6-Nepalese LCB guide and a 0.14 [place] guidewire were used to cross the vein graft to the OM. It was somewhat difficult. The guide was continuing to back out, but I was able to cross by twisting the wire and pushing it forward. There was no reestablished flow. I then daughtered the entire vein graft with a 2.5 x 12 E[place]hora balloon with no inflations. This did result in reperfusion. I then used a 4.0 x 20 Euphora balloon at the stent to the area. There was persistent watermelon seeding of the balloon. I then also did a balloon inflation of the mid to distal graft. There was heavy thrombus burden there on inflation up to 10 atmospheres. There remained a significant stenosis in the vein graft just beyond the stented area. I then used a 4.0 x 27 E[place]hora balloon, did 3 inflations up to 10 atmospheres. This did improve the stenotic area. We gave 200 mcg of Nipride down the vein graft. Flow improved to KRISTEN 3. There was no significant stenosis postprocedure. The patient was chest pain-free postprocedure. CONCLUSION: 1. STEMI, culprit occluded vein graft to OM. 2. Severe 3-vessel coronary artery disease. 3. Cardiomyopathy of 35%, severe hypokinesis to akinesis of the posterior wall. 4. Three of four grafts patent, as detailed above. 5. Successful PTCA of the late stent thrombosis of the vein graft to OM from 100% with KRISTEN 0 flow to 0% with KRISTEN 3 flow. 6. The patient is noncompliant with Effient. I have strongly advised him to be compliant with Effient and explained that this and continued smoking is a significant contributor to the recurrent stent thrombosis. He understands this. I will rebolus the patient with 60 of Effient. Continue 10 mg daily indefinitely given the recurrent stent thromboses in the past. Continue aspirin 162 mg daily. Start Aggrastat drip per protocol. Strongly advised the patient to stop smoking. Russell Mendoza MD AWC/se/jessa , 11:05 AM , 11:18 AM
--- NOTE | 2018-06-26 20:56 | ECG ---
Date Performed: 06/26/2018 Time Performed: 09:02:22 PTAGE: 72 years EKG: Sinus rhythm LEFT ANTERIOR FASCICULAR BLOCK INFEROLATERAL MYOCARDIAL INFARCTION ACUTE OK Compared to PREVIOUS TRACING , acute inferolateral ST elevation now present DOCTOR: Jeanmarie Fox Interpretating Date/Time 06/26/2018 20:56:38
[2018-06-27 04:22] LABS: Baso # (Auto) 0.1 th/mm3 (0.0-0.2); Baso % (Auto) 0.6 % (0.0-2.0); Eos # (Auto) 0.1 th/mm3 (0.0-0.4); Hematocrit 42.1 % (39.0-51.0); Hemoglobin 13.9 gm/dL (13.0-17.0); Lymph # (Auto) 3.1 th/mm3 (1.0-4.8); Lymph % (Auto) 27.3 % (9.0-44.0); Mean Corpuscular HGB Conc 32.9 % (32.0-36.0); Mean Corpuscular Hemoglobin 29.1 pg (27.0-34.0); Mean Corpuscular Volume 88.3 fL (80.0-100.0); Mean Platelet Volume 8.1 fL (7.0-11.0); Mono % (Auto) 8.7 % (0.0-8.0); Neut # (Auto) 7.2 th/mm3 (1.8-7.7); Neut % (Auto) 62.4 % (16.0-70.0); Platelet Count 216 th/mm3 (150-450); Red Blood Count 4.77 mil/mm3 (4.50-5.90); Red Cell Distribution Width 14.5 % (11.6-17.2); White Blood Count 11.5 th/mm3 (4.0-11.0)
[2018-06-27 04:29] LABS: Calcium 7.7 mg/dL (8.5-10.1); Carbon Dioxide 22.6 meq/L (21.0-32.0)
[2018-06-27 04:32] LABS: Chol/HDL Ratio 4.7 Ratio; HDL Cholesterol 31.7 mg/dL (40.0-60.0)
[2018-06-27 04:56] LABS: Creatine Kinase MB 33.6 ng/mL (0.5-3.6)
[2018-06-27 04:57] LABS: CKMB Percent 10.1 % (0.0-4.0)
--- NOTE | 2018-06-27 07:34 | P.PNIM ---
Subjective Interval history: f/u; NC in no acute distress. denies chest pain or sob. no new complaints. Physical Exam Vital signs: Vital Signs 06/26/18 09:10 06/26/18 09:14 06/26/18 09:20 Temperature 98.1 F Pulse Rate 83 83 74 Respiratory Rate 16 16 Blood Pressure 155/87 H 148/88 H Pulse Oximetry 95 95 95 06/26/18 16:00 06/26/18 20:00 06/26/18 22:00 Temperature 98.5 F 98.6 F Pulse Rate 64 66 Respiratory Rate 17 20 Blood Pressure 121/67 105/61 Pulse Oximetry 96 98 06/26/18 23:00 06/27/18 00:00 06/27/18 01:00 Temperature 98.6 F Pulse Rate 52 L 52 L 46 L Respiratory Rate 18 Blood Pressure 107/64 Pulse Oximetry 98 06/27/18 02:06 06/27/18 02:08 06/27/18 03:00 Temperature Pulse Rate 48 L 52 L 46 L Respiratory Rate Blood Pressure Pulse Oximetry 06/27/18 04:00 06/27/18 05:00 06/27/18 06:00 Temperature 98.3 F Pulse Rate 54 L 48 L 56 L Respiratory Rate 22 Blood Pressure 103/58 L Pulse Oximetry Intake & Output 06/26/18 06/27/18 06/27/18 18:59 06:59 18:59 Intake Total 405 / 405 500 / 500 Output Total 800 / 800 900 / 900 Balance -395 / -395 -400 / -400 Weight 90.8 kg 91 kg Intake: IV 5 / 5 500 / 500 Heparin/NS PF Inj 1,500 ML @ 0 5 / 5 mls/hr .ROUTE [facility] Rx#: [id number] Aggrastat Inj 12,500 mcg In 250 500 / 500 ml @ Per Protocol 16.3 mls/hr IV.CONT .[id number] [facility] Rx#: [id number] Oral 400 / 400 Output: Urine 800 / 800 900 / 900 Other: Date of Last Bowel Movement 06/26/18 # Bowel Movements 0 - Constitutional no acute distress - Routine Respiratory Exam Present: CTA bilaterally - Routine Cardiovascular Exam Present: RRR - Routine Abdominal Exam Present: soft - Routine Extremities Exam Comments: no pedal edema. - Routine Neurological Exam Present: alert, oriented X3 Results - Labs CBC & Chem 7: 06/27/18 03:43 06/27/18 03:43 Laboratory Results - last 24 hr 06/26/18 06/26/18 06/26/18 09:10 09:10 09:10 CBC w Diff Auto diff final WBC 9.6 RBC 5.47 Hgb 15.6 POC Hgb (Calc) Hct 47.9 POC Hct MCV 87.6 MCH 28.6 MCHC 32.6 RDW 13.8 Plt Count 299 MPV 8.1 Neut % (Auto) 63.9 Lymph % (Auto) 24.7 [place] % (Auto) 8.3 H Eos % (Auto) 1.4 Baso % (Auto) 1.7 Neut # (Auto) 6.1 Lymph # (Auto) 2.4 [place] # (Auto) 0.8 Eos # (Auto) 0.1 Baso # (Auto) 0.2 WBC Differential . Differential Comment . PT 10.2 INR 1.0 APTT 27.8 POC Sodium Sodium POC Potassium Potassium POC Chloride Chloride Carbon Dioxide Anion Gap POC BUN BUN Creatinine POC Creatinine Estimated GFR POC Glucose Random Glucose Calcium Total Bilirubin AST ALT Alkaline Phosphatase Total Creatine Kinase CK-MB (CK-2) CK-MB (CK-2) % Troponin I B-Natriuretic Peptide 58 Total Protein Albumin Triglycerides Cholesterol LDL Cholesterol, Calc HDL Cholesterol Cholesterol/HDL Ratio 06/26/18 06/27/18 06/27/18 09:10 03:43 03:43 CBC w Diff WBC 11.5 H RBC 4.77 Hgb 13.9 POC Hgb (Calc) Not Reportable Hct 42.1 POC Hct Not Reportable MCV 88.3 MCH 29.1 MCHC 32.9 RDW 14.5 Plt Count 216 MPV 8.1 Neut % (Auto) 62.4 Lymph % (Auto) 27.3 [place] % (Auto) 8.7 H Eos % (Auto) 1.0 Baso % (Auto) 0.6 Neut # (Auto) 7.2 Lymph # (Auto) 3.1 [place] # (Auto) 1.0 H Eos # (Auto) 0.1 Baso # (Auto) 0.1 WBC Differential . Differential Comment Auto diff final PT INR APTT POC Sodium 139 Sodium 141 142 POC Potassium 4.2 Potassium 4.2 4.0 POC Chloride 105 Chloride 108 H 111 H Carbon Dioxide 20.9 L 22.6 Anion Gap 12 8 POC BUN 16 BUN 16 16 Creatinine 1.20 1.09 POC Creatinine 1.1 Estimated GFR 60 L 67 L POC Glucose 144 H Random Glucose 147 H 85 Calcium 8.5 7.7 L D Total Bilirubin 0.4 AST 18 ALT 23 Alkaline Phosphatase 107 Total Creatine Kinase 71 333 H CK-MB (CK-2) 33.6 H CK-MB (CK-2) % 10.1 H* Troponin I Less than 0.02 L B-Natriuretic Peptide Total Protein 7.3 Albumin 3.1 L Triglycerides 73 Cholesterol 149 LDL Cholesterol, Calc 103 H HDL Cholesterol 31.7 L Cholesterol/HDL Ratio 4.70 - Imaging Impressions Chest X-Ray 06/26/18 09:10 CONCLUSION: No acute cardiopulmonary disease. - Procedures cardiac cath. Assessment and Plan - Plan A/P - STEMI with history of CAD/ CABG and hypertension s/p cardiac cath continue with aspirin and Effient- will add statin. no BB due to bradycardia. cardiology following. -dyslipidemia; check the lipid panel. Thank you for the consult. Discharge Planning: when cleared by cardiology.
--- NOTE | 2018-06-27 08:42 | P.PNCA ---
Subjective Interval history: assymptomatic in nad Medications and Allergies Active Medications: Active Medications Aspirin (Aspirin Chew) 162 mg PO DAILY [facility] Atorvastatin Calcium (Lipitor) 40 mg PO HS [facility] Heparin Sodium/Dextrose (Heparin/D5w 25,000 U/250 Ml) 25,000 unit in 250 mls @ 0 mls/hr IV.CONT TITRATE PRN; Protocol PRN Reason: Per Protocol Last Admin: 06/26/18 09:28 Dose: 1,000 units/hr, 10 mls/hr Prasugrel (Effient) 10 mg PO DAILY [facility] Sodium Chloride (Ns Flush) 2 ml IV.FLUSH BID [facility] Last Admin: 06/26/18 22:58 Dose: Not Given Sodium Chloride (Ns Flush) 2 ml IV.FLUSH PRN PRN PRN Reason: FLUSH AFTER USING IV ACCESS Allergies Allergy/AdvReac Type Severity Reaction Status Date / Time iodine Allergy Unknown Rash Verified 06/26/18 09:18 potassium iodide Allergy Unknown Rash Verified 06/26/18 09:18 povidone-iodine Allergy Unknown Rash Verified 06/26/18 09:18 sodium iodide Allergy Unknown Rash Verified 06/26/18 09:18 sodium iodide Allergy Unknown Rash Verified 06/26/18 09:18 Home Medications Medication Instructions Recorded Confirmed Type aspirin 81 mg PO DAILY 06/26/18 06/26/18 History carvedilol [Coreg] 3.125 mg PO BID 06/26/18 06/26/18 History prasugrel 10 mg PO DAILY 06/26/18 06/26/18 History Physical Exam Vital signs: Vital Signs 06/26/18 09:10 06/26/18 09:14 06/26/18 09:20 Temperature 98.1 F Pulse Rate 83 83 74 Respiratory Rate 16 16 Blood Pressure 155/87 H 148/88 H Pulse Oximetry 95 95 95 06/26/18 16:00 06/26/18 20:00 06/26/18 22:00 Temperature 98.5 F 98.6 F Pulse Rate 64 66 Respiratory Rate 17 20 Blood Pressure 121/67 105/61 Pulse Oximetry 96 98 06/26/18 23:00 06/27/18 00:00 06/27/18 01:00 Temperature 98.6 F Pulse Rate 52 L 52 L 46 L Respiratory Rate 18 Blood Pressure 107/64 Pulse Oximetry 98 06/27/18 02:06 06/27/18 02:08 06/27/18 03:00 Temperature Pulse Rate 48 L 52 L 46 L Respiratory Rate Blood Pressure Pulse Oximetry 06/27/18 04:00 06/27/18 05:00 06/27/18 06:00 Temperature 98.3 F Pulse Rate 54 L 48 L 56 L Respiratory Rate 22 Blood Pressure 103/58 L Pulse Oximetry Intake & Output 06/26/18 06/27/18 06/27/18 18:59 06:59 18:59 Intake Total 405 / 405 500 / 500 Output Total 800 / 800 900 / 900 Balance -395 / -395 -400 / -400 Weight 90.8 kg 91 kg Intake: IV 5 / 5 500 / 500 Heparin/NS PF Inj 1,500 ML @ 0 5 / 5 mls/hr .ROUTE .STK-MED ONE Rx#: [id number] Aggrastat Inj 12,500 mcg In 250 500 / 500 ml @ Per Protocol 16.3 mls/hr IV.CONT .[id number] [facility] Rx#: [id number] Oral 400 / 400 Output: Urine 800 / 800 900 / 900 Other: Date of Last Bowel Movement 06/26/18 # Bowel Movements 0 - Constitutional no acute distress - Routine HEENT Exam Head: Present: normocephalic - Routine Neck Exam Present: supple - Routine Respiratory Exam Present: CTA bilaterally - Routine Cardiovascular Exam Present: S1, S2 - Routine Abdominal Exam Present: soft - Routine Exam Comments: no lauryn Results 06/27/18 03:43 06/27/18 03:43 Cardiac Enzymes 06/26/18 06/26/18 06/27/18 Range/Units 09:10 09:10 03:43 AST 18 (15-37) U/L CK-MB (CK-2) 33.6 H (0.5-3.6) ng/mL Troponin I Less than 0.02 L (0.02-0.05) ng/mL B-Natriuretic Peptide 58 (0-100) pg/mL Coagulation 06/26/18 06/26/18 Range/Units 09:10 09:10 PT 10.2 (9.8-11.6) sec APTT 27.8 (23.4-31.7) sec B-Natriuretic Peptide 58 (0-100) pg/mL Lipids 06/27/18 Range/Units 03:43 Triglycerides 73 (42-150) mg/dL Cholesterol 149 (120-200) mg/dL HDL Cholesterol 31.7 L (40.0-60.0) mg/dL Cholesterol/HDL Ratio 4.70 Ratio CBC 06/26/18 06/27/18 Range/Units 09:10 03:43 WBC 9.6 11.5 H (4.0-11.0) th/mm3 RBC 5.47 4.77 (4.50-5.90) mil/mm3 Hgb 15.6 13.9 (13.0-17.0) gm/dL Hct 47.9 42.1 (39.0-51.0) % Plt Count 299 216 (150-450) th/mm3 Neut # (Auto) 6.1 7.2 (1.8-7.7) th/mm3 Lymph # (Auto) 2.4 3.1 (1.0-4.8) th/mm3 [place] # (Auto) 0.8 1.0 H (0.0-0.9) th/mm3 Eos # (Auto) 0.1 0.1 (0.0-0.4) th/mm3 Baso # (Auto) 0.2 0.1 (0.0-0.2) th/mm3 Comprehensive Metabolic Panel 06/26/18 06/27/18 Range/Units 09:10 03:43 Sodium 141 142 (136-145) meq/L Potassium 4.2 4.0 (3.5-5.1) meq/L Chloride 108 H 111 H (98-107) meq/L Carbon Dioxide 20.9 L 22.6 (21.0-32.0) meq/L BUN 16 16 (7-18) mg/dL Creatinine 1.20 1.09 (0.60-1.30) mg/dL Calcium 8.5 7.7 L D (8.5-10.1) mg/dL AST 18 (15-37) U/L ALT 23 (12-78) U/L Alkaline Phosphatase 107 (45-117) U/L Total Protein 7.3 (6.4-8.2) g/dL Albumin 3.1 L (3.4-5.0) g/dL Intake and Output 06/26/18 06/27/18 06/27/18 22:59 06:59 14:59 Intake Total 650 / 650 250 / 250 Output Total 800 / 800 900 / 900 Balance -150 / -150 -650 / -650 Intake: IV 250 / 250 250 / 250 Aggrastat Inj 12,500 mcg In 250 250 / 250 250 / 250 ml @ Per Protocol 16.3 mls/hr IV.CONT .[id number] [facility] Rx#: [id number] Oral 400 / 400 Output: Urine 800 / 800 900 / 900 Other: Date of Last Bowel Movement 06/26/18 # Bowel Movements 0 Weight 91 kg - Imaging and Cardiology Imaging: Impressions Chest X-Ray 06/26/18 09:10 CONCLUSION: No acute cardiopulmonary disease. Assessment and Plan - Assessment (1) ST elevation myocardial infarction (STEMI) Code(s): I21.3 - ST elevation (STEMI) myocardial infarction of unspecified site Status: Acute - Plan 1.) STEMI - pod # 1 primary pci svg om, assymptomtic, continue aspirin, effient , patient strongly advised to stop smoking, dc in am (1) ST elevation myocardial infarction (STEMI) Qualifiers: Involved coronary artery: unspecified coronary artery Qualified Code(s): I21.3 - ST elevation (STEMI) myocardial infarction of unspecified site
== END 2018-06-27 10:00 | disposition left against medical advice (07) ==
LOC: PHED 08:59 → PHEDA 09:12 → PHED 09:20 → HCIS 10:01 → HCPC 11:22
PROVIDERS: ADMIT Internal Medicine; ATTEND Internal Medicine